=== PATIENT | male | born 1980 | race Caucasian/White ===

== ENCOUNTER 2022-11-01 18:25 | Emergency (ER) | payer OTHER ==
[~2022-11-01] VITALS: Ht 188 cm; Wt 83.9 kg
[2022-11-01] MEDS ORDERED: LYMEPAK100 MG PO (22:04)
[2022-11-01] MEDS ORDERED: CHLORDIAZEPOXID25 MG PO (22:04)
== END 2022-11-01 22:28 | disposition home or self-care (01) ==
LOC: ED 18:25
DX: F10.239 Alcohol dependence with withdrawal, unspecified (principal); N39.0 Urinary tract infection, site not specified; F17.200 Nicotine dependence, unspecified, uncomplicated; Y90.0 Blood alcohol level of less than 20 mg/100 ml
CPT/HCPCS: 36415; 80053; 81001; 85025; 85060; 96374; 99284-25; G0480; J7121